=== PATIENT | male | born 1975 | race African-American/Black ===

== ENCOUNTER 2020-11-17 13:49 | Emergency (ER) | payer BC ==
[2020-11-17 15:02] LABS: Basophils % 0.9 % (0-1.3); Hematocrit 42.6 % (39.6-49.0); Lymphocytes % 24.8 % (15.3-44.8); MPV 8.3 fL (7.6-11.3); RBC Red Blood Cell Count 5.06 M/uL (4.33-5.43)
[2020-11-17] MEDS ORDERED: MORPHINE 4 MG/ML SYR ONE ×2 (15:08→16:28)
[2020-11-17] MEDS ORDERED: ONDANSETRON 4 MG/2 ML VIAL ONE (15:08)
[2020-11-17] MEDS ORDERED: NA CHLORIDE 0.9% 1,000 ML ONE (15:21)
[2020-11-17 15:32] LABS: BUN Blood Urea Nitrogen 13 mg/dL (7-18); Bicarbonate 24 mmol/L (21-32); Glucose Level 116 mg/dL (74-106); Potassium 3.9 mmol/L (3.5-5.1); Sodium Level 142 mmol/L (136-145)
--- NOTE | 2020-11-17 16:04 | RAD REPORT ---
EXAM DESCRIPTION: RAD - Ankle Left 3 View - 11/17/2020 3:56 pm CLINICAL HISTORY: Pain;Deformity COMPARISON: None FINDINGS: Left ankle and left tibia/ fibula- multiple projections are submitted Maisonneuve fracture pattern is present. There is oblique fracture of the proximal fibula along with significant syndesmotic widening at the level of the ankle indicating syndesmotic disruption. Small a vulsion fracture is probably present involving the medial malleolus. Moderate soft tissue swelling is evident.
--- NOTE | 2020-11-17 16:42 | EDPHYS ---
Physician Documentation [facility] Name: Virgil Stanton III Age: 45 yrs Sex: Male : 1975 Arrival Date: 11/17/2020 Time: 13:55 Bed 30 Private MD: BHAVNA Physician Heber Wheat HPI: 11/17 14:05 This 45 yrs old Black Male presents to ER via EMS with complaints of Leg Pain. cp 14:05 The patient presents with a deformity, an injury, pain, that is acute. The complaints cp affect the left ankle. Context: resulted from twisting of the extremity, while fishing, patient reports slipping on wet surface and losing balance. Patient reports he felt something rip in left ankle area, the patient is not able to bear weight, must have assistance, from EMS personnel, Problem is a result from a previous injury: No. Onset: The symptoms/episode began/occurred just prior to arrival. Associated signs and symptoms: Pertinent positives: numbness, swelling, weakness. Historical: - Allergies: 18:52 No Known Allergies; aa5 - PMHx: 18:52 Hypertensive disorder; Sleep apnea; aa5 - Immunization history:: Adult Immunizations up to date, Client reports receiving the 2nd dose of the Covid vaccine. - Social history:: Smoking status: Patient uses alcohol, occasionally. ROS: 14:10 Constitutional: Negative for body aches, chills, fever, poor PO intake. cp 14:10 Eyes: Negative for injury, pain, redness, and discharge. cp 14:10 ENT: Negative for ear pain, sore throat, difficulty swallowing, difficulty handling secretions. 14:10 Neck: Negative for pain with movement, pain at rest, stiffness. 14:10 Cardiovascular: Negative for chest pain. 14:10 Respiratory: Negative for cough, shortness of breath, wheezing. 14:10 Abdomen/GI: Negative for abdominal pain, nausea, vomiting, and diarrhea. 14:10 Back: Negative for pain at rest, pain with movement. 14:10 : Negative for urinary symptoms. 14:10 Neuro: Positive for numbness, of the left foot, Negative for altered mental status, loss of consciousness. 14:10 All other systems are negative. Exam: 14:15 Constitutional: The patient appears in no acute distress, alert, awake, non-toxic, well cp developed, well nourished, obese, uncomfortable. 14:15 Head/Face: Normocephalic, atraumatic. cp 14:15 Eyes: Periorbital structures: appear normal, Conjunctiva: normal, no exudate, no injection, Lids and lashes: appear normal, bilaterally. 14:15 ENT: External ear(s): are unremarkable, Nose: is normal, Mouth: Lips: moist, Oral mucosa: moist, Posterior pharynx: Airway: no evidence of obstruction, patent. 14:15 Neck: ROM/movement: is normal, is supple, without pain, no range of motions limitations. 14:15 Chest/axilla: Inspection: normal, Palpation: is normal, no crepitus, no tenderness. 14:15 Cardiovascular: Rate: normal, Rhythm: regular, Edema: is not appreciated, JVD: is not appreciated. 14:15 Respiratory: the patient does not display signs of respiratory distress, Respirations: normal, no use of accessory muscles, no retractions, labored breathing, is not present, Breath sounds: are clear throughout, no decreased breath sounds. 14:15 Abdomen/GI: Inspection: abdomen appears normal, Palpation: abdomen is soft and non-tender, in all quadrants. 14:15 Back: pain, is absent, ROM is normal. 14:15 Musculoskeletal/extremity: Extremities: grossly normal except: noted in the left ankle: decreased ROM, deformity, pain, swelling, tenderness, ROM: limited passive range of motion, in the left ankle, Pulses: noted to be 2+ in the left dorsalis pedis artery, the left foot decreased sensation. 14:15 Skin: intact with no open wounds to left lower leg and left ankle and left foot. 14:15 Neuro: Orientation: to person, place \T\ time. Mentation: is normal. Vital Signs: 14:25 BP 165 / 105; Pulse 89; Resp 18; Temp 99.8(O); Pulse Ox 97% on R/A; kh1 14:31 BP 165 / 105; Pulse 88; Resp 16; Temp 99.8; Pulse Ox 97% on R/A; kh1 16:29 BP 158 / 95; Pulse 90 MON; Resp 17 S; Temp 99.4(TE); Pulse Ox 96% on R/A; kh1 Procedures: 17:00 Splinting: Splint applied to left lower leg using Orthoglass splint, posterior long leg cp and stirrup type. applied by myself. tech. Examined by me, post splint application: neurovascular intact, Patient tolerated well. MDM: 14:27 Patient medically screened. irineo 14:30 Differential diagnosis: dislocation, open fracture, closed fracture, proximal fibula cp fracture, foot fracture. 16:00 Data reviewed: vital signs, nurses notes, radiologic studies, plain films. cp 16:00 Test interpretation: by ED physician or midlevel provider: plain radiologic studies. cp Counseling: I had a detailed discussion with the patient and/or guardian regarding: the historical points, exam findings, and any diagnostic results supporting the discharge/admit diagnosis, radiology results, the need to transfer to another facility, [facility] does not immediately have the required specialist. ED course: VSS. Discussed results of xrays with patient and need for transfer to [facility] for ortho consult. 18:15 ED course: [facility] consulted for patient with acceptance given w/o cp phone consult. 11/17 13:57 Order name: Basic Metabolic Panel; Complete Time: 15:57 11/17 15:57 Interpretation: Normal except: CL 108; GLUC 116. 11/17 13:57 Order name: CBC with Diff; Complete Time: 15:57 11/17 13:57 Order name: Type And Screen; Complete Time: 18:40 11/17 15:00 Order name: XRAY Ankle LEFT 3 view; Complete Time: 18:40 11/17 18:44 Order name: SARS-COV-2 RT PCR EDWY 11/17 13:57 Order name: IV; Complete Time: 14:55 11/17 13:57 Order name: Labs collected and sent; Complete Time: 14:55 11/17 15:00 Order name: XRAY Tib Fib LEFT cp 11/17 14:59 Order name: Labs - recollect needed: recollect type and screen, re band pt, lab unable bd to read pts name Administered Medications: 14:55 Drug: morphine 4 mg Route: IVP; Site: right antecubital; kh1 14:55 Drug: Zofran (Ondansetron) 4 mg Route: IVP; Site: right antecubital; kh1 15:00 Drug: NS 0.9% 1000 ml Route: IV; Rate: 1 bolus; Site: right antecubital; kh1 16:18 Drug: morphine 4 mg Route: IVP; Site: right antecubital; kh1 18:52 Drug: Dilaudid (HYDROmorphone) 1 mg Route: IVP; Site: right antecubital; aa5 Disposition: 11/18 05:54 Co-signature as Attending Physician, Heber Wheat MD I agree with the assessment and irineo plan of care. Disposition Summary: 11/17/20 16:42 Transfer Ordered Transfer Location: [facility] cp Reason: Higher level of care cp Condition: Stable cp Problem: new cp Symptoms: have improved cp Accepting Physician: DR Anil Cee(11/17/20 18:59) kh1 Diagnosis - Dislocation of left ankle joint, initial encounter cp - Left Proximal Fibula Fracture cp Forms: - Medication Reconciliation Form cp - SBAR form cp Signatures: Dispatcher [employer] EDMS Brittni Sandra Corey, MD MD cha Calderon, Audri, RN RN aa5 Heber Castellano PA PA Yaneli Yee kh1 Corrections: (The following items were deleted from the chart) 11/17 17:46 16:27 CORONAVIRUS+MR.LAB.BRZ ordered. EDMS EDMS 18:59 16:42 DR Anil Cee kh1
--- NOTE | 2020-11-17 16:42 | ER ---
Nurse's Notes [facility] Name: Virgil Stanton III Age: 45 yrs Sex: Male : 1975 Arrival Date: 11/17/2020 Time: 13:55 Bed 30 Private MD: Diagnosis: Dislocation of left ankle joint, initial encounter;Left Proximal Fibula Fracture Presentation: 11/17 14:25 Chief complaint: Patient states: to ER c/o left leg pain s/p fall today while fishing. [facility] denies hitting head. denies loc. positive swelling positive deformity. Coronavirus screen: Vaccine status: Patient reports receiving the 2nd dose of the covid vaccine. Ebola Screen: No symptoms or risks identified at this time. Initial Sepsis Screen: Does the patient meet any 2 criteria? No. Patient's initial sepsis screen is negative. Does the patient have a suspected source of infection? No. Patient's initial sepsis screen is negative. Risk Assessment: Do you want to hurt yourself or someone else? Patient reports no desire to harm self or others. Onset of symptoms was November 17, 2020 at 13:30. 14:25 Method Of Arrival: EMS: [facility] 14:25 Acuity: MARY 4 [facility] Triage Assessment: 14:29 General: Appears in no apparent distress. uncomfortable, Behavior is calm, cooperative, [facility] appropriate for age. Pain: Complains of pain in left leg left ankle, left foot Pain does not radiate. Pain currently is 9 out of 10 on a pain scale. Quality of pain is described as throbbing, Pain began suddenly, Aggravated by weight bearing. Neuro: No deficits noted. Level of Consciousness is awake, alert, obeys commands, Oriented to person, place, time, situation. Historical: - Allergies: 18:52 No Known Allergies; aa5 - PMHx: 18:52 Hypertensive disorder; Sleep apnea; aa5 - Immunization history:: Adult Immunizations up to date, Client reports receiving the 2nd dose of the Covid vaccine. - Social history:: Smoking status: Patient uses alcohol, occasionally. Screenin:31 Abuse screen: Denies threats or abuse. Nutritional screening: No deficits noted. [facility] Tuberculosis screening: No symptoms or risk factors identified. Fall Risk No IV (0 pts). Ambulatory Aid- Gait- Impaired (20 pts.). Assessment: 14:30 General: Appears in no apparent distress. uncomfortable, Behavior is calm, cooperative, kh1 appropriate for age. Cardiovascular: No deficits noted. Respiratory: No deficits noted. GI: No deficits noted. : No deficits noted. Musculoskeletal: Capillary refill < 3 seconds, Swelling present in left foot and left leg. 16:29 Reassessment: Patient appears in no apparent distress at this time. No changes from [facility] previously documented assessment. Patient and/or family updated on plan of care and expected duration. Pain level reassessed. Patient is alert, oriented x 3, equal unlabored respirations, skin warm/dry/pink. Patient states symptoms have not improved. 16:57 Reassessment: report called [facility] spoke with Cathy no acute distress at this time. [facility] Vital Signs: 14:25 BP 165 / 105; Pulse 89; Resp 18; Temp 99.8(O); Pulse Ox 97% on R/A; kh1 14:31 BP 165 / 105; Pulse 88; Resp 16; Temp 99.8; Pulse Ox 97% on R/A; kh1 16:29 BP 158 / 95; Pulse 90 MON; Resp 17 S; Temp 99.4(TE); Pulse Ox 96% on R/A; kh1 Vitals: 14:31 Cardiac Rhythm Assessment Regular Sinus rhythm. [facility] ED Course: 13:55 Patient arrived in ED. cp 13:55 Heber Castellano PA is PHCP. cp 13:56 Heber Wheat MD is Attending Physician. cp 14:25 Yaneli Smith is Primary Nurse. 1 14:29 Triage completed. 1 14:55 Basic Metabolic Panel Sent. 1 14:55 CBC with Diff Sent. kh1 14:55 Type And Screen Sent. kh1 15:00 Arm band placed on right wrist. kh1 15:00 Patient has correct armband on for positive identification. Bed in low position. Call [facility] light in reach. Side rails up X2. Adult w/ patient. 15:56 XRAY Ankle LEFT 3 view In Process Unspecified. EDMS 15:57 XRAY Tib Fib LEFT In Process Unspecified. EDMS 16:38 initiated transfer to [facility], pt accepted in transfer by Dr Anil Cee, admin bd approval give by Love Dill. Administered Medications: 14:55 Drug: morphine 4 mg Route: IVP; Site: right antecubital; kh1 14:55 Drug: Zofran (Ondansetron) 4 mg Route: IVP; Site: right antecubital; kh1 15:00 Drug: NS 0.9% 1000 ml Route: IV; Rate: 1 bolus; Site: right antecubital; kh1 16:18 Drug: morphine 4 mg Route: IVP; Site: right antecubital; kh1 18:52 Drug: Dilaudid (HYDROmorphone) 1 mg Route: IVP; Site: right antecubital; aa5 Outcome: 16:42 ER care complete, transfer ordered by MD. menon 18:59 Patient left the ED. kh1 Signatures: Dispatcher [employer] EDMS Brittni Sandra Audri RN RN aa5 Heber Castellano PA PA Yaneli Yee [facility]
[2020-11-17] MEDS ORDERED: HYDROMORPHONE HCL 1 MG/ML INJ ONE (19:14)
[2020-11-18 05:14] VITALS: BP 158/95; TEMP 99.4; O2SAT 96
--- NOTE | 2020-11-18 11:07 | RAD REPORT ---
EXAM DESCRIPTION: RAD - Tib Fib Left - 11/17/2020 3:56 pm CLINICAL HISTORY: Pain;Deformity COMPARISON: None FINDINGS: Left ankle and left tibia/ fibula- multiple projections are submitted Maisonneuve fracture pattern is present. There is oblique fracture of the proximal fibula along with significant syndesmotic widening at the level of the ankle indicating syndesmotic disruption. Small a vulsion fracture is probably present involving the medial malleolus. Moderate soft tissue swelling is evident.
== END 2020-11-17 18:59 | disposition short-term general hospital (02) ==
LOC: ER 13:49
PROC: 2W3MX1Z Immobilization of Left Lower Extremity using Splint (ICD-10-PCS; principal; 2020-11-17)
DX: S82.832A Other fracture of upper and lower end of left fibula, initial encounter for closed fracture (principal); S93.05XA Dislocation of left ankle joint, initial encounter; W01.0XXA Fall on same level from slipping, tripping and stumbling without subsequent striking against object, initial encounter; Y93.89 Activity, other specified; I10 Essential (primary) hypertension; Z20.822 Contact with and (suspected) exposure to COVID-19
CPT/HCPCS: 85025; 80048; 36415; 86900; 86850; 86901; 73590; 73610; 96375; 96374; 99284; 29505; U0003; J1170; J7030; J2405